=== PATIENT | female | born 2000 | race Two or more races ===

== ENCOUNTER 2020-11-22 22:50 | Emergency (ER) | payer MEDICAID, OTHER ==
[~2020-11-22] VITALS: Ht 165.1 cm; Wt 90.7 kg
[2020-11-22 22:53] VITALS: BP 103/82
== END 2020-11-23 04:53 | disposition left against medical advice (07) ==
LOC: ER 22:53
DX: R07.81 Pleurodynia (principal); Z53.21 Procedure and treatment not carried out due to patient leaving prior to being seen by health care provider